=== PATIENT | female | born 1975 | race Caucasian/White ===

== ENCOUNTER 2023-04-14 02:35 | Emergency (ER) | payer SELFPAY ==
[~2023-04-14] VITALS: Ht 180.3 cm; Wt 86.2 kg
[2023-04-14 05:00] VITALS: BP 154/96
[2023-04-14] MEDS ORDERED: PROM25 PO (05:22)
[2023-04-14] MEDS ORDERED: ZEBUTAL 50-3251 EAC1 PO (05:22)
== END 2023-04-14 05:30 | disposition home or self-care (01) ==
LOC: ER 02:35
DX: G43.909 Migraine, unspecified, not intractable, without status migrainosus (principal); R11.2 Nausea with vomiting, unspecified
CPT/HCPCS: 96361; 96374; 96375; 99283-25; J1170; J1200; J1790; J7030

== ENCOUNTER → 2023-04-15 | Outpatient (CLI) | payer SELFPAY ==
[~2023-04-15] MED LIST: PROM25 PO; ZEBUTAL 50-3251 EAC1 PO
[2023-04-15 10:25] LABS: Bun/Creatinine Ratio 15.7 (12.0-20.0); Calcium, Blood 9.2 mg/dL (8.5-10.1); Creatinine, Blood 1.02 mg/dL (0.40-1.00); Potassium, Blood 3.5 mmol/L (3.5-5.5)
[2023-04-15 12:06] LABS: BASOPHILS ABSOLUTE AUTO 0.03 K/mm3 (0.00-0.23); BASOPHILS PERCENT AUTO 1 % (0-2); EOSINOPHILS PERCENT AUTO 2 % (0-6); Hematocrit 39.1 % (33.0-51.0); Hemoglobin 13.5 g/dL (11.5-16.0); IMMATURE GRAN ABSOLUTE AUTO 0.02 K/mm3 (0.00-0.10); IMMATURE GRAN PERCENT AUTO 0 % (0-1); LYMPHOCYTES ABSOLUTE AUTO 0.81 K/mm3 (0.84-5.20); LYMPHOCYTES PERCENT AUTO 15 % (21-46); MONOCYTES ABSOLUTE AUTO 0.44 K/mm3 (0.16-1.47); MONOCYTES PERCENT AUTO 8 % (4-13); Mean Corpuscular HGB 28.7 pg (26.0-34.0); Mean Corpuscular HGB Conc 34.5 g/dL (31.5-36.5); Mean Corpuscular Volume 83 fL (80-100); NEUTROPHILS ABSOLUTE AUTO 4.06 K/mm3 (1.96-9.15); NEUTROPHILS PERCENT AUTO 74 % (41-73); Platelet Count 319 K/mm3 (150-400); RDW Coefficient Variation 12.2 % (11.7-14.2); RDW Standard Deviation 36.8 fL (35.1-46.3); White Blood Cell Count 5.46 K/mm3 (4.00-11.30)
== END ==
LOC: LAB SHORT 10:15 → LAB 10:15
PROVIDERS: Family Medicine
DX: H05.20 Unspecified exophthalmos (principal)
CPT/HCPCS: 80048; 85025